=== PATIENT | male | born 1985 | race Two or more races ===

== ENCOUNTER → 2025-07-04 | Outpatient (CLI) | payer OTHER, SELFPAY ==
--- NOTE | 2025-07-04 | XR_ITS ---
Examination: Knee, right , 3 views Technique: Knee AP, lateral, oblique 3 views Date and time of exam: July 04, 2025 1202 hours INDICATIONS: Right knee pain today. FINDINGS: Mild to moderate narrowing medial joint space No fracture or dislocation No foreign body IMPRESSION: Mild to moderate narrowing medial joint space
[2025-07-04 13:34] LABS: Alanine Aminotransferase 11 U/L (10-49); Albumin, Serum 4.6 gm/dL (3.5-5.0); Albumin/Globulin Ratio 1.9 (1.2-2.2); Alkaline Phosphatase 129 U/L (46-116); Anion Gap 11 (7-16); Aspartate Amino Transferase 19 U/L (0-34); BUN/Creatinine Ratio 12 Ratio (12-20); Bilirubin,Total 1.2 mg/dL (0.3-1.2); Blood Urea Nitrogen 12 mg/dL (9-23); Calcium 10.1 mg/dL (8.3-10.6); Calcium (Corrected) 10.1 mg/dL (8.5-10.1); Carbon Dioxide 26.1 mMol/L (20.0-31.0); Cardiac Risk Estimate 3.0 RATIO (4.0-6.7); Chloride 105 mMol/L (98-107); Cholesterol 144 mg/dL (132-200); Creatinine (Component) 1.0 mg/dL (0.6-1.3); Globulin 2.4 gm/dL (2.3-3.5); Glucose 88 mg/dL (74-106); HDL Cholesterol 48 mg/dL (40-60); LDL Cholesterol,Calculated 82 mg/dL (0-130); Osmolality,Calculated 281 (275-295); Potassium 4.6 mMol/L (3.4-5.1); Sodium 142 mMol/L (136-145); Total Protein 7.0 gm/dL (5.7-8.2); Triglycerides 70 mg/dL (30-150); eGFR > 60 See Note
== END | disposition home or self-care (01) ==
LOC: CDIM 12:01 → COPL 12:16
PROVIDERS: PCP Family Medicine; Referring Provider Family Medicine; Visit Provider Radiology Diagnostic Radiology
DX: M25.861 Other specified joint disorders, right knee (principal); E78.1 Pure hyperglyceridemia; Z13.1 Encounter for screening for diabetes mellitus
CPT/HCPCS: 36415; 73562; 80053; 80061